=== PATIENT | male | born 1970 | race Asian ===

== ENCOUNTER 2019-03-04 10:54 | Day surgery (SDC) | payer OTHER ==
[~2019-03-04 10:54] MED LIST: BUPIVACAINE 0.5% (SDV) 30 ML, morphine SULFATE (PF) 8 MG, EPINEPHrine 0.3 MG, KETOROLAC... IRR; CEFAZOLIN 2 GM/50 ML (PMX) 50 ML IVPB
[2019-03-04] MEDS: DEXAMETHASONE 2 MG TAB PO (12:05)
[2019-03-04] MEDS: GABAPENTIN 300 MG CAP PO (12:05)
[2019-03-04] MEDS ORDERED: BUPIVACAINE 0.5%/EPI (SDV) 30 ML INJ (12:38)
[2019-03-04] MEDS ORDERED: FENTAnyl 50 MCG/ML VIAL (13:52)
[2019-03-04] MEDS ORDERED: PROPOFOL 40 ML ×2 (13:52→14:23)
[2019-03-04] MEDS ORDERED: HYDROmorphONE 1 MG/5 ML IV SYRINGE IV ×3 (14:00)
[2019-03-04] MEDS ORDERED: FENTAnyl 50 MCG/ML VIAL IV ×3 (14:00)
[2019-03-04] MEDS ORDERED: DIPHENHYDRAMINE 50 MG INJ IV (14:00)
[2019-03-04] MEDS ORDERED: METOCLOPRAMIDE 10 MG INJ IV (14:00)
[2019-03-04] MEDS ORDERED: ALBUTEROL 0.083% (NEB) 2.5 MG/3 ML AMP HHN (14:00)
[2019-03-04] MEDS ORDERED: ONDANSETRON 4 MG INJ IV (14:00)
[2019-03-04] MEDS ORDERED: MEPERIDINE 25 MG INJ IV (14:00)
[2019-03-04] MEDS ORDERED: SUCCINYLCHOLINE CHLORIDE 100 MG/5 ML SYG IV (14:23)
[2019-03-04] MEDS ORDERED: LIDOCAINE 100 MG SYRINGE (14:23)
[2019-03-04] MEDS ORDERED: ROCURONIUM 50 MG INJ (14:23)
[2019-03-04] MEDS ORDERED: SUGAMMADEX SODIUM 200 MG/2 ML VIAL IV ×2 (14:23)
[2019-03-04] MEDS ORDERED: DEXAMETHASONE 4 MG/ML 5 ML INJ (14:41)
== END 2019-03-04 16:37 | disposition home or self-care (01) ==
LOC: SDS 10:54
DX: M67.52 Plica syndrome, left knee (principal); M22.42 Chondromalacia patellae, left knee; E11.9 Type 2 diabetes mellitus without complications; I10 Essential (primary) hypertension; E78.5 Hyperlipidemia, unspecified; Z79.84 Long term (current) use of oral hypoglycemic drugs
CPT/HCPCS: 29877; 82962